=== PATIENT | female | born 1985 | race Caucasian/White ===

== ENCOUNTER 2021-11-26 15:15 | Emergency (ER) | payer MEDICAID ==
[~2021-11-26] VITALS: Ht 160 cm; Wt 88.5 kg
[2021-11-26 15:21] VITALS: BP_SYST 126
--- NOTE | 2021-11-26 15:26 | NUR ---
Patient to ER bed H1 to gown for evaluation. Side rails up.
--- NOTE | 2021-11-26 15:27 | NUR ---
Dr Mahan placed orders for patient
--- NOTE | 2021-11-26 15:28 | NUR ---
ER at bedside examining patient.
--- NOTE | 2021-11-26 15:30 | NUR ---
PT PRESENTS TO THE ER BIB SELF WITH VAGINAL BLEEDING. PAIN SCALE 10/10. PT SKIN INTACT AAOX4. PT NOTES 1ST TRIMESTER. NO TEMP. VS WNL.
[2021-11-26 15:55] LABS: BASOPHILS % (AUTO) 0.3 % (0.0-2.0); EOSINOPHILS # (AUTO) 0.1 K/uL (0.0-0.4); EOSINOPHILS % (AUTO) 1.4 % (0.0-4.0); HEMATOCRIT 37.1 % (36-48); HEMOGLOBIN 12.9 g/dL (12.0-16.0); LYMPHOCYTES # (AUTO) 2.3 K/uL (1.0-5.5); LYMPHOCYTES % (AUTO) 23.8 % (20.5-51.5); MEAN CORPUSCULAR HEMOGLOBIN 30 pg (27-31); MEAN CORPUSCULAR HGB CONC 35 % (32-36); MEAN CORPUSCULAR VOLUME 87 fL (79.0-98.0); MONOCYTES # (AUTO) 0.7 K/uL (0.0-1.0); MONOCYTES % (AUTO) 6.7 % (1.7-9.3); NEUTROPHILS # (AUTO) 6.7 K/uL (1.8-7.7); NEUTROPHILS % (AUTO) 67.8 % (40.0-70.0); PLATELET COUNT (AUTO) 278 K/uL (130-430); RED BLOOD CELL COUNT(AUTO) 4.25 MIL/uL (4.2-6.2); WHITE BLOOD COUNT (AUTO) 9.8 K/uL (4.8-10.8)
[2021-11-26 16:00] VITALS: BP_SYST 125
[2021-11-26 16:03] LABS: CALCIUM 8.6 mg/dL (8.4-11.0); CREATININE 0.77 mg/dL (0.55-1.30); POTASSIUM 3.5 mmol/L (3.5-5.1)
[2021-11-26] MEDS ORDERED: MORPHINE 4 MG INJ. 4 MG/ML VIAL IVP ONE (16:15)
[2021-11-26] MEDS ORDERED: NACL 0.9% 1,000 ML IV ONE (16:15)
[2021-11-26] MEDS ORDERED: ONDANSETRON HCL 4 MG/2 ML VIAL IVP ONE (16:15)
[2021-11-26 16:25] LABS: ALBUMIN 3.8 g/dL (3.4-4.8); TOTAL BILIRUBIN 0.2 mg/dL (0.0-1.0)
--- NOTE | 2021-11-26 16:34 | NUR ---
Received report to assume care of patient.
--- NOTE | 2021-11-26 16:35 | NUR ---
Pt alert and oriented upon face to face assessment. Ultrasound being completed at bedside. Pt to have IV placed and receive pain medications as ordered. Will continue to monitor.
--- NOTE | 2021-11-26 17:12 | NUR ---
# 22 gauge angiocath placed to L FA. Use of asceptic technique. Opsite placed over site. Blood return noted. Blood for lab drawn from site. Flushed with 10 cc of normal saline. No evidence of infiltration noted. Patient tolerated well.
--- NOTE | 2021-11-26 17:53 | NUR ---
Patient AoX4,gcs 15. VSS. Patient given written and verbal discharge instructions and verbalizes understanding. ER MD discussed with patient the results and treatment provided. Patient in stable condition.ID arm band removed. Left FA IV catheter removed intact and dressing applied, no active bleeding. Rx of given. Patient educated on pain management and to follow up with PMD. Pain Scale 0/10. Opportunity for questions provided and answered. NAD noted at this time.
== END 2021-11-26 17:53 | disposition home or self-care (01) ==
LOC: SED 15:15
DX: O03.9 Complete or unspecified spontaneous abortion without complication (principal); N93.9 Abnormal uterine and vaginal bleeding, unspecified; Z3A.10 10 weeks gestation of pregnancy
CPT/HCPCS: 36415; 76801; 76817; 80053; 84702; 85025; 96361; 96374; 96375; 99284; J2270; J2405; J7030